=== PATIENT | male | born 2000 | race Hispanic/Latino ===

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

== ENCOUNTER 2022-02-21 08:34 | Outpatient (CLI) | payer BC | END 2022-02-21 08:35 | disposition home or self-care (01) | LOC: TBSIIMAG 08:34 | PROVIDERS: ATTEND Surgery | DX: M79.2 Neuralgia and neuritis, unspecified (principal); R60.0 Localized edema | CPT/HCPCS: 72195 ==

== ENCOUNTER 2025-04-15 03:30 | Observation (INO) | payer BC, OTHER ==
[2025-04-15] MEDS ORDERED: Acetaminophen 500 MG TAB ONE (03:50)
[2025-04-15 03:59] LABS: Bacteria/HPF None Seen HPF (None Seen); CAUTI Indications for Culture Pelvic or flank pain; Glucose, Urine (Dipstick) Normal (Negative); Leukocyte Negative Leu/uL (Negative); Protein, Urine (Dipstick) 20 mg/dL (Neg-Trace); Specific Gravity, Urine 1.038 (1.002-1.036); WBC/HPF 0-3 HPF (0-3)
[2025-04-15 04:08] LABS: Urine Culture Reflex No No
[2025-04-15] MEDS ORDERED: Ketorolac Tromethamine 30 MG (1 mL) VIAL ONE (05:07)
[2025-04-15 05:33] LABS: #Basophils 0.03 10x3/uL (0.0-0.2); #Eosinophils 0.17 10x3/uL (0.0-0.7); #Monocytes 0.70 10x3/uL (0.11-0.59); #Neutrophils 5.03 10x3/uL (1.40-6.50); %Basophils 0.4 % (0.0-1.0); %Eosinophils 2.2 % (0.0-10.0); %Lymphocytes 22.6 % (21.0-51.0); %Monocytes 9.1 % (0.0-10.0); %Neutrophils 65.4 % (42.0-75.0); Hematocrit 37.6 % (42.0-52.0); Hemoglobin 13.1 g/dL (14.0-18.0); Mean Corpuscular Hemoglobin 29.4 pg (27.0-31.0); Mean Corpuscular Volume 84.5 fL (78.0-98.0); Platelet Count 169 10x3/uL (130-400); Red Blood Cell (RBC) Count 4.45 mill/uL (4.70-6.10); White Blood Cell (WBC) Count 7.69 10x3/uL (4.8-10.8)
[2025-04-15 06:09] LABS: ALT (SGPT) 25 U/L (Less than 45); AST (SGOT) 24 U/L (11-34); Albumin 4.7 g/dL (3.1-4.5); Alkaline Phosphatase 64 U/L (40-110); Anion Gap 14 mmol/L (10-20); BUN (Urea Nitrogen) 22 mg/dL (8.9-20.6); Bilirubin, Total 0.8 mg/dL (0.3-1.2); Calc. Creatinine Clearance 0 mL/min (70-130); Calcium 9.7 mg/dL (7.8-10.44); Carbon Dioxide 23 mmol/L (22-29); Chloride 106 mmol/L (98-107); Globulin 3.1 g/dL (2.4-3.5); Glucose 111 mg/dL (70-105); Potassium 3.9 mmol/L (3.5-5.1); Sodium 139 mmol/L (136-145)
[2025-04-15 08:10] VITALS: BMI 25.0
[2025-04-15] MEDS ORDERED: Acetaminophen 325 MG TAB PO PRN (09:37)
[2025-04-15] MEDS ORDERED: cefTRIAXone (ROCEPHIN) 1 GM VIAL ONE (12:57)
[2025-04-15] MEDS ORDERED: SUCCINYLCHOLINE/SOD CL,ISO/PF 200 MG/10 ML SYRINGE FS ONE (12:58)
[2025-04-15] MEDS ORDERED: fentaNYL PF 100 MCG/2 ML SYRINGE ONE (12:58)
[2025-04-15] MEDS ORDERED: PROPOFOL 20 ML ONE (12:58)
[2025-04-15] MEDS ORDERED: Ondansetron PF 4 MG/2 ML Vial ONE (13:30)
[2025-04-15] MEDS ORDERED: Oxybutynin 5 MG TAB PO PRN (14:39)
[2025-04-15] MEDS: HYDROcodone/Acetaminophen 5/325 mg Tablet PO PRN (18:22)
[2025-04-16] MEDS: Ondansetron PF 4 MG/2 ML Vial IVP PRN (00:48)
[2025-04-16 06:13] LABS: #Basophils Less than 0.03 10x3/uL (0.0-0.2); #Eosinophils Less than 0.03 10x3/uL (0.0-0.7); #Monocytes 0.60 10x3/uL (0.11-0.59); #Neutrophils 6.25 10x3/uL (1.40-6.50); %Basophils 0.0 % (0.0-1.0); %Eosinophils 0.0 % (0.0-10.0); %Lymphocytes 11.4 % (21.0-51.0); %Monocytes 7.7 % (0.0-10.0); %Neutrophils 80.4 % (42.0-75.0); Hematocrit 34.5 % (42.0-52.0); Hemoglobin 11.7 g/dL (14.0-18.0); Mean Corpuscular Hemoglobin 29.0 pg (27.0-31.0); Mean Corpuscular Volume 85.6 fL (78.0-98.0); Platelet Count 184 10x3/uL (130-400); Red Blood Cell (RBC) Count 4.03 mill/uL (4.70-6.10); White Blood Cell (WBC) Count 7.78 10x3/uL (4.8-10.8)
[2025-04-16 06:34] LABS: ALT (SGPT) 17 U/L (Less than 45); AST (SGOT) 16 U/L (11-34); Albumin 3.7 g/dL (3.1-4.5); Alkaline Phosphatase 50 U/L (40-110); Anion Gap 11 mmol/L (10-20); BUN (Urea Nitrogen) 16 mg/dL (8.9-20.6); Bilirubin, Total 0.4 mg/dL (0.3-1.2); Calc. Creatinine Clearance 144 mL/min (70-130); Calcium 8.7 mg/dL (7.8-10.44); Carbon Dioxide 21 mmol/L (22-29); Chloride 109 mmol/L (98-107); Globulin 2.7 g/dL (2.4-3.5); Glucose 143 mg/dL (70-105); Potassium 4.3 mmol/L (3.5-5.1); Sodium 137 mmol/L (136-145)
[2025-04-16 11:05] VITALS: BP 122/77; TEMP 98
[2025-04-23 16:39] LABS: CA Oxalate Dihydrate 40 % (.); CA Oxalate Monohydrate 50 % (.); Color Tan (.); Stone Weight 38 mg (.)
== END 2025-04-16 12:10 | disposition home or self-care (01) ==
LOC: ERS 03:30 → T4-A 07:59
PROVIDERS: ADMIT Emergency Medicine; ATTEND Emergency Medicine
PROC: 0TC68ZZ Extirpation of Matter from Right Ureter, Via Natural or Artificial Opening Endoscopic (ICD-10-PCS; principal; 2025-04-16)
PROC: 0T768DZ Dilation of Right Ureter with Intraluminal Device, Via Natural or Artificial Opening Endoscopic (ICD-10-PCS; 2025-04-16)
DX: N13.2 Hydronephrosis with renal and ureteral calculous obstruction (principal); N17.9 Acute kidney failure, unspecified; Z98.890 Other specified postprocedural states
CPT/HCPCS: 36415; 74176; 80053; 81001; 82365; 85025; 88300; 96374; C1758; C1769; C2617; G0378; J0696; J1100; J1885; J2405; J2704; J3010; J7120; Q9967

== ENCOUNTER 2025-07-05 13:04 | Outpatient (CLI) | payer BC | END 2025-07-05 13:05 | disposition home or self-care (01) | LOC: ULT 13:04 | PROVIDERS: ATTEND Urology | DX: N20.0 Calculus of kidney (principal) | CPT/HCPCS: 76770 ==

== ENCOUNTER 2025-07-12 09:34 | Outpatient (CLI) | payer BC | END 2025-07-12 09:35 | disposition home or self-care (01) | LOC: BICCT 09:34 | PROVIDERS: ATTEND Urology | DX: N20.2 Calculus of kidney with calculus of ureter (principal); R31.29 Other microscopic hematuria | CPT/HCPCS: 74176 ==